=== PATIENT | male | born 1975 | race African-American/Black ===

== ENCOUNTER 2017-01-05 22:46 | Emergency (ER) | payer SELFPAY ==
[2017-01-05 23:18] VITALS: BP 130/84
[2017-01-05] MEDS ORDERED: IBUPROFEN 600 MG TABLET PO ONE (23:41)
--- NOTE | 2017-01-05 23:43 | ER Document Report ---
ED Extremity Problem, Lower - General Chief Complaint: Foot Pain Stated Complaint: LEFT FOOT SWOLLEN Time Seen by Provider: 01/05/17 23:30 Mode of Arrival: Ambulatory Information source: Patient TRAVEL OUTSIDE OF THE [place] IN LAST 30 DAYS: No - HPI Location: Foot Occurred: Yesterday Severity: Moderate Recent injury: No Associated symptoms: Painful ambulation. denies: Chest pain, Chills, Dizzy, Fainting, Fever, Dickey a crack, Dickey a pop, Hurts to breath, Rapid heart rate, Seizure, Short of breath, Sweaty, Unable to bear weight, Weak Exacerbated by: Movement, Walking Relieved by: Rest Notes: Patient arrives with complaints of left lateral foot pain. This started yesterday. They noticed his foot was swollen. There is also slight redness to the lateral aspect of the foot. There was no traumatic injury. He denies any fevers. He denies any numbness, tingling, weakness. No abdominal pain. No nausea, vomiting, diarrhea. No leg swelling. He denies any other complaints at this time. Past Medical History - Social History Smoking Status: Unknown if Ever Smoked Family History: Reviewed & Not Pertinent Patient has suicidal ideation: No Patient has homicidal ideation: No Renal/ Medical History: Denies: Hx Peritoneal Dialysis - Immunizations Hx Diphtheria, Pertussis, Tetanus Vaccination: Yes Review of Systems - Review of Systems -: Yes All other systems reviewed and negative Physical Exam - Vital signs Vitals: Temp Pulse Resp BP Pulse Ox 99.1 F 66 18 130/84 H 98 01/05/17 23:16 01/05/17 23:16 01/05/17 23:16 01/05/17 23:16 01/05/17 23:16 - Notes Notes: GENERAL: alert, cooperative, nontoxic, no distress. HEAD: normocephalic, atraumatic EYES: conjunctiva pink without discharge, no external redness or swelling. EARS: no external swelling, no external redness NOSE: atraumatic, no external swelling MOUTH/THROAT: mucous membranes moist and pink NECK: soft, supple, full range of motion, no meningismus. CHEST: no distress, lungs clear and equal throughout. No wheezing, rales, rhonchi. CARDIAC: regular rate and rhythm, no murmur, normal capillary refill, normal pulses. BACK: full range of motion, no CVA tenderness. EXTREMITIES: full range of motion of all extremities. Tenderness to palpation to the left lateral foot at the base of the fifth metatarsal. There is mild erythema and increased warmth to touch to this area. He is full range of motion of the ankle with no sign of ankle effusion or infection. Achilles is intact. No ligament instability. Normal pulse and sensation distally. No open skin. No drainage. No abscess. NEURO: alert and oriented 3, no focal deficits, full range of motion of all extremities. PYSCH: appropriate mood, affect. Patient is cooperative. SKIN: pink, warm, dry, no rash. Course - Re-evaluation Re-evalutation: 01/06/17 00:19 Patient is nontoxic. Stable vitals. The patient's had left foot pain for the last few days without significant injury. No fever. Exam shows some mild redness and swelling to the lateral aspect of the foot. Slightly hot to touch. No sign of a joint infection. It is possible that this could be gouty arthropathy. I will discharge the patient home in a postop shoe as needed for pain. NSAIDs. Tramadol. Follow-up with podiatry if not better in 1 week, sooner for increased pain, fever, redness, or any further concerns. The patient is noted to have elevated blood pressure during today's emergency department visit. The patient was informed of this finding. The patient was instructed that this may be related to pre-hypertension and requires further evaluation with a primary care provider. The patient has no hypertensive symptoms at this time. The patient's emergency department workup and current diagnosis were explained to the patient and or family. Follow-up instructions were provided. Medications if prescribed were discussed. Instructions for when to return to the emergency department including specific worrisome symptoms were discussed with the patient and/or family. - Vital Signs Vital signs: Temp Pulse Resp BP Pulse Ox 99.1 F 66 18 130/84 H 98 01/05/17 23:16 01/05/17 23:16 01/05/17 23:16 01/05/17 23:16 01/05/17 23:16 - Diagnostic Test Radiology reviewed: Image reviewed, Reports reviewed Procedures - Immobilization Left foot Pre-Proc Neuro Vasc Exam: Normal Immobilizer type: Post-op shoe Performed by: PCT Post-Proc Neuro Vasc Exam: Normal Alignment checked and good: Yes Discharge - Discharge Clinical Impression: Left foot pain Condition: Stable Disposition: HOME, SELF-CARE Instructions: Gout ([facility]), Gout Diet ([facility]) Additional Instructions: Take medications as prescribed. Wear postop shoe as needed for comfort. Rest, ice, elevate. Follow-up if not better in 1 week, sooner for increased pain, fever, redness, increased swelling, or any further concerns. Your blood pressure was elevated during today's visit. Have this rechecked with your doctor. The medication you were prescribed today may cause drowsiness. Do not drive or operate heavy machinery while taking this medication. Prescriptions: Diclofenac Sodium [Voltaren 50 Mg Tablet.] 50 mg PO BID #20 tablet. Tramadol HCl 50 mg PO TID PRN #10 tablet PRN Reason: Forms: Elevated Blood Pressure Referrals: [facility] [Provider Group] - Follow up as needed LAURA THOMSON DPM [ACTIVE STAFF] - Follow up as needed
--- NOTE | 2017-01-06 00:11 | RADIOLOGY REPORT (SQ) ---
EXAM DESCRIPTION: FOOT LEFT COMPLETE COMPLETED DATE/TIME: 01/06/2017 12:03 am REASON FOR STUDY: LATERAL PAIN COMPARISON: None. NUMBER OF VIEWS: Three views. TECHNIQUE: AP, lateral and oblique radiographic images acquired of the left foot. LIMITATIONS: None. FINDINGS: MINERALIZATION: Normal. BONES: No acute fracture or dislocation. No worrisome bone lesions. JOINTS: No effusions. SOFT TISSUES: No soft tissue swelling. No foreign body. OTHER: No other significant finding. IMPRESSION: NO RADIOGRAPHIC EVIDENCE OF ACUTE INJURY. TECHNICAL DOCUMENTATION: JOB ID: [id number] [employer]- All Rights Reserved
[2017-01-06] MEDS ORDERED: TRAMADOL HCL 50 MG TABLET PO ONE (00:13)
== END 2017-01-06 00:37 | disposition home or self-care (01) ==
LOC: ER 22:46
DX: M79.672 Pain in left foot (principal); M79.89 Other specified soft tissue disorders; L53.9 Erythematous condition, unspecified; R03.0 Elevated blood-pressure reading, without diagnosis of hypertension
CPT/HCPCS: 99283